=== PATIENT | male | born 1990 | race American Indian/Alaskan Native ===

== ENCOUNTER 2016-10-20 19:36 | Emergency (ER) | payer SELFPAY ==
[2016-10-20 20:43] VITALS: BP 122/74
== END 2016-10-20 20:00 | disposition left against medical advice (07) ==
LOC: ED 19:36
DX: R06.02 Shortness of breath (principal); Z53.21 Procedure and treatment not carried out due to patient leaving prior to being seen by health care provider

== ENCOUNTER 2020-09-26 17:19 | Emergency (ER) | payer SELFPAY | END 2020-09-26 21:19 | disposition left against medical advice (07) | LOC: ED 17:19 | DX: M54.9 Dorsalgia, unspecified (principal); Z53.21 Procedure and treatment not carried out due to patient leaving prior to being seen by health care provider ==

== ENCOUNTER 2022-01-05 19:47 | Emergency (ER) | payer SELFPAY ==
[2022-01-05 19:56] VITALS: BP 126/77
== END 2022-01-05 22:00 | disposition left against medical advice (07) ==
LOC: ED 19:47
DX: R07.9 Chest pain, unspecified (principal); Z53.21 Procedure and treatment not carried out due to patient leaving prior to being seen by health care provider